=== PATIENT | female | born 1965 | race Caucasian/White ===

== ENCOUNTER 2017-01-21 11:14 | Emergency (ER) | payer OTHER ==
[~2017-01-21 11:14] MED LIST: AFRIN NASAL SPRAY; AFRIN15 M1; ALBUTEROL SULF8.5 G1 INH; ALBUTEROL17 GM INH; ALLEGRA PO; BROMFED DM PO; CIPRO PO; CLARITIN10 M1 PO; CLARITIN10 MG PO; DICLOFENAC PO; ERYC250 MG PO; FLEXERIL PO; FLONASE16 GM; IBUPROFEN PO; MEDROL PO; MUCINEX DM1 TAB.SR . PO; NAPROSYN-EC500 M1 PO; NO MEDICATIONS; PHENERGAN W/CO120 ML PO; PREDNISONE PO; PROTONIX PO; PYRIDIUM PO; VIBRAMYCIN100 M1 PO; VICODIN 5/500 T1 TAB PO; ZYRTEC D PO; ZYRTEC-D TABLE1 EACH PO; ZYRTEC10 M1 PO; ZYRTEC10 M2 PO
[2017-01-21] MEDS ORDERED: NON-DROWSY ALLE10 MG PO (11:29)
== END 2017-01-21 11:57 | disposition home or self-care (01) ==
LOC: SED 11:14
DX: J01.00 Acute maxillary sinusitis, unspecified (principal); J44.9 Chronic obstructive pulmonary disease, unspecified; J45.909 Unspecified asthma, uncomplicated; F41.9 Anxiety disorder, unspecified; Z87.891 Personal history of nicotine dependence; Z79.899 Other long term (current) drug therapy; Z88.1 Allergy status to other antibiotic agents; Z88.2 Allergy status to sulfonamides; Z88.8 Allergy status to other drugs, medicaments and biological substances
CPT/HCPCS: 99283

== ENCOUNTER 2017-01-22 12:40 | Emergency (ER) | payer OTHER ==
[~2017-01-22 12:40] MED LIST changes: +NON-DROWSY ALLE10 MG PO
== END 2017-01-22 12:54 | disposition left against medical advice (07) ==
LOC: SED 12:40
DX: Z53.21 Procedure and treatment not carried out due to patient leaving prior to being seen by health care provider (principal)